=== PATIENT | male | born 1960 ===

== ENCOUNTER → 2018-01-29 13:32 | Outpatient (REF) | payer OTHER, SELFPAY ==
[2018-01-29 20:10] LABS: Cholesterol 148 mg/dL (140-199); HDL Cholesterol 42 mg/dL (40-60); LDL Cholesterol Calculated 89 mg/dL (<100); Triglycerides 84 mg/dL (35-150)
== END ==
LOC: LAB 13:32
PROVIDERS: Visit Provider Family Medicine
DX: E78.5 Hyperlipidemia, unspecified (principal)
CPT/HCPCS: 36415; 80061